=== PATIENT | female | born 1935 | race Caucasian/White ===

== ENCOUNTER 2017-03-17 18:54 | Emergency (ER) | payer OTHER ==
[~2017-03-17] VITALS: Ht 152.4 cm; Wt 64.4 kg
[~2017-03-17 18:54] MED LIST: CELEBREX200 MG PO; ENALAPRIL MALEA20 MG PO; HCTZ PO; HYDROCHLOROTHIA25 MG PO; IRON325 M1 PO; KEFLEX500 MG PO; KENLAOG,ARISTOC60 ML TP; KLONOPIN0.5 M1 PO; LIPITOR10 MG PO; NAPROSYN250 MG PO; OXYCODONE HCL5 MG PO; TYLENOL EXTRA500 MG PO; VASOTEC PO; XARELTO10 MG PO; anxiety med; lipitor PO
[2017-03-17] MEDS ORDERED: NYSTATIN15 GM TP (23:05)
[2017-03-17] MEDS ORDERED: BACTROBAN CREAM15 GM TP (23:05)
[2017-03-17 23:16] VITALS: BP 162/90
== END 2017-03-17 23:17 | disposition home or self-care (01) ==
LOC: EXP 18:54 → EME 18:54 → EXP 23:17
DX: L30.4 Erythema intertrigo (principal); I10 Essential (primary) hypertension; E78.5 Hyperlipidemia, unspecified; F41.9 Anxiety disorder, unspecified; F32.9 Major depressive disorder, single episode, unspecified; Z87.891 Personal history of nicotine dependence; Z85.3 Personal history of malignant neoplasm of breast; Z90.12 Acquired absence of left breast and nipple; Z90.710 Acquired absence of both cervix and uterus; Z88.2 Allergy status to sulfonamides
CPT/HCPCS: 99281; 99283